=== PATIENT | female | born 1960 | race Two or more races ===

== ENCOUNTER 2017-04-18 06:05 | Emergency (ER) | payer MEDICAID ==
[2017-04-18] MEDS ORDERED: CIPROFLOXACIN500 M2 ORAL (09:16)
[2017-04-18] MEDS ORDERED: ZOFRAN ODT4 MG ORAL (09:16)
--- NOTE | 2017-04-18 15:09 | Emergency Room Report ---
History of Present Illness General Source: Patient Present Illness HPI Patient presents with complaints of general bodyaches several episodes of vomiting and diarrhea Patient also reports that she's developed a headache Denies any neck pain or photophobia Denies any dysuria frequency patient also has been having a mild cough Patient reports that she was seen at another facility no provided with any medication as the nausea continued patient presents to the ER she had some mild abdominal cramping denies any focal pain Patient History Past Medical History: see triage record Pertinent Family History: none Reviewed Nursing Documentation: PMH: Agreed, PSxH: Agreed Review of Systems All Other Systems: negative except mentioned in HPI Physical Exam Sp02 EP Interpretation: reviewed, normal - 99% on room air which is normal pulse ox General Appearance: well appearing, no apparent distress Head: normocephalic, atraumatic Eyes: bilateral eye PERRL, bilateral eye EOMI ENT: hearing grossly normal, normal pharynx, TMs + canals normal, uvula midline Neck: full range of motion, supple, no meningismus, no bony tend Respiratory: lungs clear, normal breath sounds, no rhonchi, no respiratory distress, no retraction, no accessory muscle use Cardiovascular #1: normal peripheral pulses, regular rate, rhythm, no edema, no gallop, no JVD, no murmur Gastrointestinal: normal bowel sounds, non tender, soft, no mass, no organomegaly, non-distended, no guarding, no hernia, no pulsatile mass, no rebound Genitourinary: no CVA tenderness Musculoskeletal: normal inspection Neurologic: oriented x3, responsive, keno attendant III-XII nml as tested, motor strength/ tone normal, sensory intact Psychiatric: mood/affect normal Skin: normal color, no rash, warm/dry, palpation normal Lymphatic: normal inspection, no adenopathy Medical Decision Making Diagnostic Impression: Primary Impression: vomiting diarrhea ER Course With the history exam and presentation, multiple differentials considered, including but not limited to appendicitis, gastritis, cholecystitis, diverticulitis patient did have IV established along with hydration and antiemetics Blood work is at baseline levels Chest x-ray was also done which was normal Please note that this workup was performed during a power outage therefore a there is no leak between the laboratory test also no leak between the vital signs Patient did have reevaluation and feels significantly improved and is able to be discharged home in stable condition CBC normal Chemistry normal Chest X-Ray Diagnostic Results Chest X-Ray Diagnostic Results : Chest X-Ray Ordered: Yes # of Views/Limited/Complete: 1 View Indication: Chest Pain EP Interpretation: Yes Interpretation: no consolidation, no effusion, no pneumothorax Impression: No acute disease Electronically Signed by: Paige Alegria DO Status: improved Disposition: HOME, SELF-CARE Condition: Improved Scripts Ondansetron Odt* (ZOFRAN ODT*) 4 Mg Tab.rapdis 4 MG ORAL Q6H Y for Nausea & Vomiting, #10 TAB 0 Refills Prov: PAIGE ALEGRIA D.O. 04/18/17 Ciprofloxacin Hcl* (CIPROFLOXACIN HCL*) 500 Mg Tablet 500 MG ORAL Q12H, #14 TAB 0 Refills Prov: PAIGE ALEGRIA D.O. 04/18/17 Referrals: NOT CHOSEN IPA/,REFERRING (PCP) Patient Instructions: Nausea and Vomiting, Adult, [id number], Diarrhea, Adult , [id number] Additional Instructions: Patient is provided with the discharge instructions notified to follow up with primary doctor in the next 2-3 days otherwise return to the er with any worsening symptoms. Please note that this report is being documented using [employer] technology. This can lead to erroneous entry secondary to incorrect interpretation by the dictating instrument. PAIGE ALEGRIA D.O. Apr 18, 2017 15:09
== END 2017-04-18 10:13 | disposition home or self-care (01) ==
LOC: EMR 07:30
DX: R11.10 Vomiting, unspecified (principal); R19.7 Diarrhea, unspecified
CPT/HCPCS: 99284; J2405

== ENCOUNTER 2017-04-22 22:00 | Emergency (ER) | payer MEDICAID ==
[~2017-04-22] VITALS: Ht 162.6 cm; Wt 52.2 kg
[~2017-04-22 22:00] MED LIST: CIPROFLOXACIN500 M2 ORAL; ZOFRAN ODT4 MG ORAL
[2017-04-22 22:25] VITALS: BP 128/82
[2017-04-22] MEDS ORDERED: Ketorolac 30mg Inj IV ONE (23:15)
[2017-04-22 23:46] LABS: APPEARANCE,URINE CLEAR; BILIRUBIN, URINE NEGATIVE (NEGATIVE); GLUCOSE, URINE (UA) NEGATIVE (NEGATIVE); KETONES,URINE NEGATIVE (NEGATIVE); LEUKOCYTE ESTERASE ,URINE NEGATIVE (NEGATIVE); NITRITE,URINE NEGATIVE (NEGATIVE); PH,URINE 5 (4.5-8.0); PROTEIN,URINE NEGATIVE (NEGATIVE); UROBILINOGEN,URINE NORMAL MG/DL (0.0-1.0)
[2017-04-22 23:47] LABS: BASOPHILS % (AUTO) 0.5 % (0.0-2.0); EOSINOPHILS % (AUTO) 1.1 % (0.0-3.0); HEMATOCRIT 40.7 % (37.0-47.0); HEMOGLOBIN 13.8 G/DL (12.0-16.0); LYMPHOCYTES % (AUTO) 12.1 % (20.0-45.0); MEAN CORPUSCULAR VOLUME 99 FL (80-99); MONOCYTES % (AUTO) 4.7 % (1.0-10.0); NEUTROPHILS % (AUTO) 81.7 % (45.0-75.0); PLATELET COUNT 239 K/UL (150-450); RED BLOOD COUNT 4.11 M/UL (4.20-5.40); RED CELL DISTRIBUTION WIDTH 11.7 % (11.6-14.8); WHITE BLOOD COUNT 7.1 K/UL (4.8-10.8)
[2017-04-22 23:49] LABS: COLOR,URINE YELLOW
[2017-04-22 23:57] LABS: ANION GAP 6 mmol/L (5-15); BLOOD UREA NITROGEN 26 mg/dL (7-18); CALCIUM 8.9 MG/DL (8.5-10.1); CARBON DIOXIDE 28 MMOL/L (21-32); CHLORIDE 103 MMOL/L (98-107); CREATININE 0.6 MG/DL (0.55-1.30); POTASSIUM 3.7 MMOL/L (3.5-5.1); SODIUM 137 MMOL/L (136-145)
[2017-04-23 00:05] LABS: ALANINE AMINOTRANSFERASE 232 U/L (12-78); ALBUMIN 3.6 G/DL (3.4-5.0); ALBUMIN/GLOBULIN RATIO 1.1 (1.0-2.7); ALKALINE PHOSPHATASE 72 U/L (46-116); ASPARTATE AMINO TRANSFERASE 131 U/L (15-37); BILIRUBIN,TOTAL 0.4 MG/DL (0.2-1.0)
[2017-04-23 00:25] VITALS: BP 121/75
--- NOTE | 2017-04-23 02:00 | Emergency Room Report ---
History of Present Illness General Chief Complaint: General Complaint Source: Patient Present Illness HPI This is a 56-year-old female with history of gastritis. She presents with chief complaint of epigastric abdominal pain with vomiting. Also with iron of fever since April 12. Diarrhea initially but none now. Was seen a few days ago placed on antibiotics. She came back because antibiotics I agree with her stomach. She's been vomiting more. No other complaint. Allergies: Coded Allergies: No Known Allergies (Unverified , 04/22/17) Patient History Past Medical History: see triage record, old chart reviewed Past Surgical History: other Pertinent Family History: none Social History: Denies: smoking, alcohol use, drug use Last Menstrual Period: NA Now: No Immunizations: other Reviewed Nursing Documentation: PMH: Agreed, PSxH: Agreed Nursing Documentation-PMH Past Medical History: No Stated History Review of Systems Eye: Denies: eye pain, blurred vision ENT: Denies: ear pain, nose congestion, throat swelling Respiratory: Denies: cough, shortness of breath Cardiovascular: Denies: chest pain, palpitations Gastrointestinal: Reports: abdominal pain, nausea, vomiting, Denies: diarrhea Musculoskeletal: Denies: back pain, joint pain Skin: Denies: rash Neurological: Denies: headache, numbness Endocrine: Denies: increased thirst, increased urine Hematologic/Lymphatic: Denies: easy bruising All Other Systems: negative except mentioned in HPI Physical Exam Vital Signs Date Time Temp Pulse Resp B/P (MAP) Pulse Ox O2 Delivery O2 Flow Rate FiO2 04/22/17 22:22 98.2 88 18 128/82 98 Room Air vitals normal Sp02 EP Interpretation: reviewed, normal General Appearance: well appearing, no apparent distress, alert Head: normocephalic, atraumatic Eyes: bilateral eye PERRL, bilateral eye EOMI ENT: hearing grossly normal, normal pharynx Neck: full range of motion, supple, no meningismus Respiratory: chest non-tender, lungs clear, normal breath sounds Cardiovascular #1: regular rate, rhythm, no murmur Gastrointestinal: normal bowel sounds, non tender, no mass, no organomegaly, no bruit, non-distended Musculoskeletal: back normal, gait/station normal, normal range of motion Psychiatric: mood/affect normal Skin: warm/dry Medical Decision Making Diagnostic Impression: Primary Impression: Abdominal pain Qualified Codes: R10.13 - Epigastric pain Additional Impressions: Gastritis Qualified Codes: K29.00 - Acute gastritis without bleeding Transaminitis ER Course Patient with abdominal pain. CT scan showed possible gastritis. No evidence of obstruction. Otherwise negative. No evidence of acute abdomen. She tolerating by mouth here. We'll discharge home. Lab Results Impression labs with elevated liver enzyme CT/MRI/US Diagnostic Results CT/MRI/US Diagnostic Results : Imaging Test Ordered: CT abdomen and pelvis Impression read by radiologist. under distention versus gastritis No bowel obstruction Last Vital Signs Date Time Temp Pulse Resp B/P (MAP) Pulse Ox O2 Delivery O2 Flow Rate FiO2 04/22/17 22:25 98.2 88 18 128/82 98 Room Air Status: improved Disposition: HOME, SELF-CARE Condition: Stable Scripts Omeprazole Magnesium (PRILOSEC OTC) 20 Mg Tablet. 20 MG ORAL DAILY, #30 TAB Prov: SHAWANDA TINEO M.D. 04/23/17 Additional Instructions: Followup with your in 7 days. Return if symptom worsen. SHAWANDA TINEO M.D. Apr 23, 2017 02:00
[2017-04-23] MEDS ORDERED: PRILOSEC OTC20 MG ORAL (02:04)
[2017-04-23 02:20] VITALS: BP 118/69
--- NOTE | 2017-04-23 10:16 | Diagnostic Imaging Report ---
Indication: Abdominal pain Technique: CT of the abdomen and pelvis utilizing automated exposure control with intravenous contrast. Venous scanning performed. CT dose: Total DLP 493.77 mGycm; CTDI vol 9.87 mGy Comparison: None Findings: Linear scarring/atelectasis in the right middle lobe. Heart size is within normal limits. No pericardial effusion. Liver, gallbladder, spleen, pancreas and adrenal glands unremarkable. Kidneys enhance symmetrically. No urinary tract stone or hydronephrosis bilaterally. Bladder unremarkable in appearance. Left adnexal cystic structure measuring up to 2.7 cm. Uterus grossly unremarkable. No free intraperitoneal air. No evidence of bowel obstruction. Appendix is not definitively visualized however there is no focal inflammatory change in the right lower quadrant. No ascites. There is questionable thickening versus underdistention of the stomach. Moderate colonic stool noted. There is a small fat-containing umbilical hernia. Abdominal aorta normal in caliber. No bulky lymphadenopathy identified. No acute osseous abnormality seen. IMPRESSION: Underdistention versus wall thickening of the stomach. Correlate for gastritis. Moderate colonic stool. No bowel obstruction. 2.7 cm cystic left adnexal lesion. Consider further evaluation with pelvic ultrasound. This corresponds with the statrad preliminary report. The CT scanner at [facility] is accredited by the [employer] and the scans are performed using protocols designed to limit radiation exposure to as low as reasonably achievable to attain images of sufficient resolution adequate for diagnostic evaluation.
== END 2017-04-23 02:20 | disposition home or self-care (01) ==
LOC: EMR 22:43
DX: K29.70 Gastritis, unspecified, without bleeding (principal); R74.0 Nonspecific elevation of levels of transaminase and lactic acid dehydrogenase [LDH]
CPT/HCPCS: 36415; 74177; 80053; 81003; 83690; 85025; 96361; 96374; 96375; 99284; J1885; J2405; Q9967

== ENCOUNTER 2017-04-26 14:05 | Emergency (ER) | payer MEDICAID ==
[~2017-04-26] VITALS: Ht 162.6 cm; Wt 54.4 kg
[~2017-04-26 14:05] MED LIST changes: +PRILOSEC OTC20 MG ORAL
[2017-04-26 14:27] VITALS: BP 128/79
--- NOTE | 2017-04-26 14:56 | Emergency Room Report ---
History of Present Illness General Chief Complaint: Diarrhea Source: Patient Present Illness HPI Patient is a 56-year-old female presented after increased watery diarrhea and generalized weakness. Patient gradual onset of symptoms. Patient reports having this for several weeks after initial respiratory infection. She had no complaints of abdominal pain or bowel cramping. She reports having difficulty with the bouts of diarrhea immediately after eating. She denied any black or bloody stools Allergies: Coded Allergies: No Known Allergies (Unverified , 04/22/17) Patient History Past Medical History: see triage record Reviewed Nursing Documentation: PMH: Agreed, PSxH: Agreed Nursing Documentation-PMH Past Medical History: No Stated History Review of Systems All Other Systems: negative except mentioned in HPI Physical Exam Vital Signs Date Time Temp Pulse Resp B/P (MAP) Pulse Ox O2 Delivery O2 Flow Rate FiO2 04/26/17 14:17 98.8 80 18 130/78 98 Room Air Sp02 EP Interpretation: reviewed, normal General Appearance: normal inspection, well appearing, no apparent distress, alert, GCS 15 Head: atraumatic ENT: normal ENT inspection, hearing grossly normal, normal voice Neck: normal inspection, full range of motion, supple, no bony tend Respiratory: normal inspection, lungs clear, normal breath sounds, no respiratory distress, no retraction, no wheezing Cardiovascular #1: regular rate, rhythm, no edema Gastrointestinal: normal inspection, normal bowel sounds, non tender, soft, no guarding, no hernia Genitourinary: no CVA tenderness Musculoskeletal: normal inspection, back normal, normal range of motion Neurologic: normal inspection, alert, oriented x3, responsive, information technology auditor III-XII nml as tested, speech normal Psychiatric: normal inspection, judgement/insight normal, mood/affect normal Skin: normal inspection, normal color, no rash Medical Decision Making Diagnostic Impression: Primary Impression: Chronic diarrhea Additional Impression: Abnormal TSH ER Course Patient presented for abdominal pain. Differential diagnoses included ischemic bowel, appendicitis, perforated viscus, abdominal aortic aneurysm, inferior myocardial infarction, viral gastroenteritis. Because of complexity of patient' s case laboratory testing was ordered. Laboratory testing was notable for elevated TSH. Patient was noted to have symptoms consistent with possible hyperthyroidism. Patient is advised followup with her primary care physician for further endocrine workup. The patient will likely need repeat TSH as well as free T4. The patient is advised to follow up with primary care doctor in 1-2 days. Patient is advised to return if any worsening condition or if any changes in status that are concerning. This report is dictated with [employer] screw down software which may occasionally lead to discrepancies related to use of this software. Labs Test 04/26/17 14:39 04/26/17 15:20 Urine Color Yellow Urine Appearance Clear Urine pH 5 (4.5-8.0) Urine Specific [place] 1.015 (1.005-1.035) Urine Protein Negative (NEGATIVE) Urine Glucose (UA) Negative (NEGATIVE) Urine Ketones Negative (NEGATIVE) Urine Occult Blood Negative (NEGATIVE) Urine Nitrite Negative (NEGATIVE) Urine Bilirubin Negative (NEGATIVE) Urine Urobilinogen Normal MG/DL (0.0-1.0) Urine Leukocyte Esterase Negative (NEGATIVE) White Blood Count 5.7 K/UL (4.8-10.8) Red Blood Count 4.22 M/UL (4.20-5.40) Hemoglobin 14.5 G/DL (12.0-16.0) Hematocrit 41.6 % (37.0-47.0) Mean Corpuscular Volume 99 FL (80-99) Mean Corpuscular Hemoglobin 34.5 PG (27.0-31.0) Mean Corpuscular Hemoglobin Concent 34.9 G/DL (32.0-36.0) Red Cell Distribution Width 11.4 % (11.6-14.8) Platelet Count 255 K/UL (150-450) Mean Platelet Volume 6.9 FL (6.5-10.1) Neutrophils (%) (Auto) 67.9 % (45.0-75.0) Lymphocytes (%) (Auto) 24.9 % (20.0-45.0) Monocytes (%) (Auto) 4.9 % (1.0-10.0) Eosinophils (%) (Auto) 1.6 % (0.0-3.0) Basophils (%) (Auto) 0.8 % (0.0-2.0) Sodium Level 138 MMOL/L (136-145) Potassium Level 3.8 MMOL/L (3.5-5.1) Chloride Level 99 MMOL/L (98-107) Carbon Dioxide Level 31 MMOL/L (21-32) Anion Gap 8 mmol/L (5-15) Blood Urea Nitrogen 15 mg/dL (7-18) Creatinine 0.6 MG/DL (0.55-1.30) Estimat Glomerular Filtration Rate > 60 mL/min (>60) Glucose Level 96 MG/DL (74-106) Calcium Level 10.0 MG/DL (8.5-10.1) Total Bilirubin 0.9 MG/DL (0.2-1.0) Aspartate Amino Transf (AST/SGOT) 35 U/L (15-37) Alanine Aminotransferase (ALT/SGPT) 92 U/L (12-78) Alkaline Phosphatase 73 U/L (46-116) Total Protein 7.8 G/DL (6.4-8.2) Albumin 4.3 G/DL (3.4-5.0) Globulin 3.5 g/dL Albumin/Globulin Ratio 1.2 (1.0-2.7) Lipase 225 U/L (73-393) Thyroid Stimulating Hormone (TSH) 20.009 uiU/mL (0.358-3.740) Last Vital Signs Date Time Temp Pulse Resp B/P (MAP) Pulse Ox O2 Delivery O2 Flow Rate FiO2 04/26/17 14:27 98.8 82 17 128/79 99 Room Air Status: improved Disposition: HOME, SELF-CARE Condition: Stable Scripts Loperamide HCl (Loperamide) 2 Mg Capsule 2 MG ORAL Q12HR for Diarrhea, #20 CAP 0 Refills Prov: Pollo Lemons 04/26/17 Pollo Lemons Apr 26, 2017 14:56
[2017-04-26] MEDS ORDERED: Thiamine HCl 100mg/ml 2 ml Inj ONE (14:57)
[2017-04-26] MEDS ORDERED: Thiamine HCl 100 MG in D5W 55 ML IVPB SCH (15:00)
[2017-04-26] MEDS ORDERED: Mylanta II UD 30ml ORAL ONE (15:00)
[2017-04-26] MEDS ORDERED: Dicyclomine HCl 10mg/5ml oral soln ORAL ONE (15:00)
[2017-04-26] MEDS ORDERED: Lidocaine 2% Visc 15ml soln ORAL ONE (15:00)
[2017-04-26 15:20] LABS: APPEARANCE,URINE CLEAR; BILIRUBIN, URINE NEGATIVE (NEGATIVE); COLOR,URINE YELLOW; GLUCOSE, URINE (UA) NEGATIVE (NEGATIVE); KETONES,URINE NEGATIVE (NEGATIVE); LEUKOCYTE ESTERASE ,URINE NEGATIVE (NEGATIVE); NITRITE,URINE NEGATIVE (NEGATIVE); PH,URINE 5 (4.5-8.0); PROTEIN,URINE NEGATIVE (NEGATIVE); UROBILINOGEN,URINE NORMAL MG/DL (0.0-1.0)
[2017-04-26 15:38] LABS: BASOPHILS % (AUTO) 0.8 % (0.0-2.0); EOSINOPHILS % (AUTO) 1.6 % (0.0-3.0); HEMATOCRIT 41.6 % (37.0-47.0); HEMOGLOBIN 14.5 G/DL (12.0-16.0); LYMPHOCYTES % (AUTO) 24.9 % (20.0-45.0); MEAN CORPUSCULAR VOLUME 99 FL (80-99); MONOCYTES % (AUTO) 4.9 % (1.0-10.0); NEUTROPHILS % (AUTO) 67.9 % (45.0-75.0); PLATELET COUNT 255 K/UL (150-450); RED BLOOD COUNT 4.22 M/UL (4.20-5.40); RED CELL DISTRIBUTION WIDTH 11.4 % (11.6-14.8); WHITE BLOOD COUNT 5.7 K/UL (4.8-10.8)
[2017-04-26 15:41] VITALS: BP 119/72
[2017-04-26 16:04] LABS: ANION GAP 8 mmol/L (5-15); BLOOD UREA NITROGEN 15 mg/dL (7-18); CARBON DIOXIDE 31 MMOL/L (21-32); CHLORIDE 99 MMOL/L (98-107); CREATININE 0.6 MG/DL (0.55-1.30); POTASSIUM 3.8 MMOL/L (3.5-5.1); SODIUM 138 MMOL/L (136-145)
[2017-04-26 16:20] LABS: ALANINE AMINOTRANSFERASE 92 U/L (12-78); ALBUMIN 4.3 G/DL (3.4-5.0); ALBUMIN/GLOBULIN RATIO 1.2 (1.0-2.7); ALKALINE PHOSPHATASE 73 U/L (46-116); ASPARTATE AMINO TRANSFERASE 35 U/L (15-37); BILIRUBIN,TOTAL 0.9 MG/DL (0.2-1.0)
[2017-04-26] MEDS ORDERED: Sodium Chloride 500ML 500 ML IV ONE (16:30)
[2017-04-26] MEDS ORDERED: IMODIUM2 MG ORAL (16:51)
[2017-04-26 17:04] VITALS: BP 156/125
== END 2017-04-26 17:07 | disposition home or self-care (01) ==
LOC: EMR 14:25
DX: K52.9 Noninfective gastroenteritis and colitis, unspecified (principal); R94.6 Abnormal results of thyroid function studies
CPT/HCPCS: 36415; 80053; 81003; 83690; 84443; 85025; 96361; 96365; 96375; 99284; J2405; J7040

== ENCOUNTER → 2017-04-27 | Emergency (ER) | payer MEDICAID ==
[~2017-04-27] VITALS: Ht 162.6 cm; Wt 54.4 kg
[~2017-04-27] MED LIST changes: +AMBIEN5 MG ORAL; +DiphenhydrAMINE 25mg/10ml Elixir ORAL ONE; +IMODIUM2 MG ORAL
[2017-04-27 14:14] VITALS: BP 127/81
--- NOTE | 2017-04-27 14:39 | Emergency Room Report ---
History of Present Illness General Chief Complaint: Headache Source: Patient Present Illness HPI 56 yo female presents to ER complaining of NARANJO since yesterday and continued flu- like symptoms. Patient reports NARANJO is over front of head. Patient reports being seen in ER for diarrhea symptoms and generalized weakness several times recently; states she has not filled prescription or followed up with primary care since last visit. Reports symptoms have improved since yesterday. Patient also reports flu-like symptoms. Reports taking B12 injection shots at home so that she could "come into the ER today". Denies use of other medications. Denies fever, chest pain, SOB, dysuria, hematuria, abdominal pain Allergies: Coded Allergies: No Known Allergies (Unverified , 04/22/17) Patient History Past Medical History: see triage record Reviewed Nursing Documentation: PMH: Agreed, PSxH: Agreed Nursing Documentation-PMH Past Medical History: No Stated History Review of Systems All Other Systems: negative except mentioned in HPI Physical Exam Vital Signs Date Time Temp Pulse Resp B/P (MAP) Pulse Ox O2 Delivery O2 Flow Rate FiO2 04/27/17 14:04 98.9 73 16 127/81 97 Room Air 99.0 Sp02 EP Interpretation: reviewed, normal General Appearance: no apparent distress, alert, GCS 15, non-toxic Head: normocephalic, atraumatic, other - no sinus tenderness Eyes: bilateral eye normal inspection, bilateral eye PERRL ENT: hearing grossly normal, normal pharynx, no angioedema, normal voice Neck: full range of motion, supple/symm/no masses Respiratory: chest non-tender, lungs clear, normal breath sounds, speaking full sentences Cardiovascular #1: regular rate, rhythm, no edema Gastrointestinal: normal bowel sounds, non tender, soft, non-distended, no guarding, no rebound Genitourinary: no CVA tenderness Musculoskeletal: back normal, digits/nails normal, gait/station normal, normal range of motion, non-tender Neurologic: alert, oriented x3, responsive, specialty person III-XII nml as tested, motor strength/tone normal, sensory intact, speech normal Skin: no rash Lymphatic: no adenopathy Medical Decision Making PA Attestation Dr. Lemons is my supervising Physician whom patient management has been discussed with. Diagnostic Impression: Primary Impression: Headache ER Course Patient presents to ER complaining of NARANJO and flu-like symptoms. DDx considered include but are not limited to viral URI, influenza, tension NARANJO, migraine NARANJO, cluster NARANJO, UTI. Vital signs are WNL, patient is afebrile. I did not order further labs and imaging at this time, patient is stable, negative physical, with no worsening or new onset of symptoms since yesterday visit to ER. I ordered medication for migraine and UTI. ER Course Patient states symptoms have improved but not completely disappeared,wants to know "why" the symptoms don't all go away "immediately". Patient reports she has still not called or contacted primary care provider per instructions from previous ER visits. Informed patient that she needs to call and contact her insurance provider to receive information on physician to schedule an appointment. Patient begins dialing insurance while in ER. Patient provided with Metoclopramide for alleviation of NARANJO symptoms; Benadryl provided to prevent potential side effects of Metoclopramide. 0325PM Patient reports feeling better since administration of medication. Patient resting comfortably in no acute distress, nontoxic appearing. Patient states she scheduled an appointment with physician for later today and wants to leave ER now to get to appointment on time. Informed patient lab results and workup have not been completed; if she wants to leave will need to sign AMA form. 0330PM Patient wants to leave AMA; patient states she scheduled an appointment while in the ER with primary care; states she wants to leave now to go to that appointment. Instructed patient to fill prescription from previous ER visit and discuss thyroid labs with primary care provider. Patient departed AMA. Patient instructed to follow-up with primary care provider in the next 3 days and discuss further referral with PCP to outboard technician. ER precautions given. Patient instructed to return to ER immediately for any new or worsening of symptoms including but not limited to fever, neck stiffness , vision changes, and neurological symptoms. Labs Test 04/27/17 15:07 Urine Color Pale yellow Urine Appearance Clear Urine pH 5 (4.5-8.0) Urine Specific [place] 1.005 (1.005-1.035) Urine Protein Negative (NEGATIVE) Urine Glucose (UA) Negative (NEGATIVE) Urine Ketones Negative (NEGATIVE) Urine Occult Blood Negative (NEGATIVE) Urine Nitrite Negative (NEGATIVE) Urine Bilirubin Negative (NEGATIVE) Urine Urobilinogen Normal MG/DL (0.0-1.0) Urine Leukocyte Esterase Negative (NEGATIVE) Last Vital Signs Date Time Temp Pulse Resp B/P (MAP) Pulse Ox O2 Delivery O2 Flow Rate FiO2 04/27/17 14:04 98.9 73 16 127/81 97 Room Air 99.0 Disposition: AGAINST MEDICAL ADVICE Condition: Stable Patient Instructions: General Headache Without Cause Rios Beckman Apr 27, 2017 14:39
[2017-04-27 15:33] LABS: APPEARANCE,URINE CLEAR; BILIRUBIN, URINE NEGATIVE (NEGATIVE); COLOR,URINE PALE YELLOW; GLUCOSE, URINE (UA) NEGATIVE (NEGATIVE); KETONES,URINE NEGATIVE (NEGATIVE); LEUKOCYTE ESTERASE ,URINE NEGATIVE (NEGATIVE); NITRITE,URINE NEGATIVE (NEGATIVE); PH,URINE 5 (4.5-8.0); PROTEIN,URINE NEGATIVE (NEGATIVE); UROBILINOGEN,URINE NORMAL MG/DL (0.0-1.0)
== END | disposition left against medical advice (07) ==
LOC: EMR 14:39
DX: R51 Headache (principal)
CPT/HCPCS: 81003; 99283

== ENCOUNTER 2017-05-24 12:29 | Inpatient (IN) | payer MEDICAID ==
[~2017-05-24] VITALS: Ht 162.6 cm; Wt 52.2 kg
[~2017-05-24 12:29] MED LIST changes: -AMBIEN5 MG ORAL; -DiphenhydrAMINE 25mg/10ml Elixir ORAL ONE
[2017-05-24 13:38] LABS: BASOPHILS % (AUTO) 0.6 % (0.0-2.0); EOSINOPHILS % (AUTO) 1.1 % (0.0-3.0); HEMATOCRIT 42.3 % (37.0-47.0); HEMOGLOBIN 14.6 G/DL (12.0-16.0); LYMPHOCYTES % (AUTO) 12.1 % (20.0-45.0); MEAN CORPUSCULAR VOLUME 97 FL (80-99); MONOCYTES % (AUTO) 4.9 % (1.0-10.0); NEUTROPHILS % (AUTO) 81.2 % (45.0-75.0); PLATELET COUNT 280 K/UL (150-450); RED BLOOD COUNT 4.36 M/UL (4.20-5.40); RED CELL DISTRIBUTION WIDTH 11.1 % (11.6-14.8); WHITE BLOOD COUNT 5.9 K/UL (4.8-10.8)
[2017-05-24 13:53] LABS: INR 0.9 (0.9-1.1)
[2017-05-24 13:54] LABS: ANION GAP 11 mmol/L (5-15); BLOOD UREA NITROGEN 15 mg/dL (7-18); CALCIUM 9.8 MG/DL (8.5-10.1); CARBON DIOXIDE 26 MMOL/L (21-32); CHLORIDE 100 MMOL/L (98-107); CREATININE 0.6 MG/DL (0.55-1.30); POTASSIUM 3.2 MMOL/L (3.5-5.1); SODIUM 137 MMOL/L (136-145)
[2017-05-24 14:04] LABS: ALANINE AMINOTRANSFERASE 66 U/L (12-78); ALBUMIN 4.2 G/DL (3.4-5.0); ALBUMIN/GLOBULIN RATIO 1.2 (1.0-2.7); ALKALINE PHOSPHATASE 99 U/L (46-116); ASPARTATE AMINO TRANSFERASE 44 U/L (15-37); BILIRUBIN,TOTAL 0.6 MG/DL (0.2-1.0)
[2017-05-24 14:11] VITALS: BP 124/65
[2017-05-24 14:40] LABS: APPEARANCE,URINE CLEAR; BILIRUBIN, URINE NEGATIVE (NEGATIVE); COLOR,URINE PALE YELLOW; GLUCOSE, URINE (UA) NEGATIVE (NEGATIVE); KETONES,URINE NEGATIVE (NEGATIVE); LEUKOCYTE ESTERASE ,URINE NEGATIVE (NEGATIVE); NITRITE,URINE NEGATIVE (NEGATIVE); PH,URINE 5 (4.5-8.0); PROTEIN,URINE NEGATIVE (NEGATIVE); UROBILINOGEN,URINE NORMAL MG/DL (0.0-1.0)
[2017-05-24 14:56] VITALS: BP 107/59
--- NOTE | 2017-05-24 15:16 | Emergency Room Report ---
History of Present Illness General Chief Complaint: Generalized Weakness Source: Patient Present Illness HPI The patient presents with severe weakness and nausea. This has been present for several weeks to months. She been seen here multiple times. She also has diarrhea. She took 2 Imodium and it hasn't helped yet. Stools have been watery. In the recent past she's taken ciprofloxacin (04/18/17). She denies pain but states that the nausea is overwhelming. She has no medication for the nausea at this time. Weakness is generalized. No fevers. No chest pain, palpitations, polies, dysuria, joint pain, depression, anxiety. She was seen here recently and had an elevated TSH (04/26). Does take medication for this but is uncertain what it is. She signed out AGAINST MEDICAL ADVICE at that time. Post menopausal. CT was done 04/23 - IMPRESSION: Underdistention versus wall thickening of the stomach. Correlate for gastritis. Moderate colonic stool. No bowel obstruction. 2.7 cm cystic left adnexal lesion. Consider further evaluation with pelvic ultrasound. Allergies: Coded Allergies: No Known Allergies (Unverified , 04/22/17) Patient History Past Medical History: see triage record, old chart reviewed Social History: Denies: smoking, alcohol use, drug use Social History Narrative from home Reviewed Nursing Documentation: PMH: Agreed, PSxH: Agreed Nursing Documentation-PMH Hx Gastrointestinal Problems: Yes - GASTRITIS Review of Systems All Other Systems: negative except mentioned in HPI Physical Exam Vital Signs Date Time Temp Pulse Resp B/P (MAP) Pulse Ox O2 Delivery O2 Flow Rate FiO2 05/24/17 12:41 99.1 96 18 134/80 99 Room Air 99.1 Sp02 EP Interpretation: reviewed, normal General Appearance: no apparent distress, GCS 15, non-toxic, other - weak appearing Head: normocephalic Eyes: bilateral eye normal inspection, bilateral eye PERRL ENT: dry mucus membranes Neck: supple Respiratory: lungs clear, normal breath sounds Cardiovascular #1: regular rate, rhythm, no murmur, edema - trace Cardiovascular #2: 2+ radial (R) Gastrointestinal: normal inspection, normal bowel sounds, non tender, no mass, non-distended Musculoskeletal: back normal, normal range of motion, no calf tenderness Neurologic: alert, oriented x3, motor strength/tone normal, sensory intact, cerebellar normal, speech normal Psychiatric: mood/affect normal Reflexes: 2+ knee (R) - slight delay, 2+ knee (L) - slight delay Skin: warm/dry, other - sallo Medical Decision Making Diagnostic Impression: Primary Impression: Persistent vomiting Additional Impressions: Hypokalemia Diarrhea Qualified Codes: R19.7 - Diarrhea, unspecified Hypothyroid Qualified Codes: E03.9 - Hypothyroidism, unspecified ER Course Patient presents with weakness, vomiting and nausea with h/o elevated TSH. DDx : colitis, hypothyroidism, GItis, electrolyte imbalance, gastritis amongst others. As abdomen is soft, no imaging indicated. Treatment with IV hydration and zofran. Stool will be tested for C difficile. TSH reviewed from 04/26 = 20. WBC normal, H/H is slightly high suggesting volume depletion. K is low, renal function normal. ALT elevated (had been higher in past). Patient somewhat improved with IV hydration and zofran. Able to ambulate in ED. Patient unable to take potassium PO. Nausea. No stool produced. Cortisone and potassium given IV. Admit med Dr. Sal notified. Laboratory Tests Test 05/24/17 13:19 05/24/17 14:07 White Blood Count 5.9 K/UL (4.8-10.8) Red Blood Count 4.36 M/UL (4.20-5.40) Hemoglobin 14.6 G/DL (12.0-16.0) Hematocrit 42.3 % (37.0-47.0) Mean Corpuscular Volume 97 FL (80-99) Mean Corpuscular Hemoglobin 33.4 PG (27.0-31.0) H Mean Corpuscular Hemoglobin Concent 34.5 G/DL (32.0-36.0) Red Cell Distribution Width 11.1 % (11.6-14.8) L Platelet Count 280 K/UL (150-450) Mean Platelet Volume 6.8 FL (6.5-10.1) Neutrophils (%) (Auto) 81.2 % (45.0-75.0) H Lymphocytes (%) (Auto) 12.1 % (20.0-45.0) L Monocytes (%) (Auto) 4.9 % (1.0-10.0) Eosinophils (%) (Auto) 1.1 % (0.0-3.0) Basophils (%) (Auto) 0.6 % (0.0-2.0) Prothrombin Time 9.9 SEC (9.30-11.50) Prothrombin Time INR 0.9 (0.9-1.1) PTT 26 SEC (23-33) Sodium Level 137 MMOL/L (136-145) Potassium Level 3.2 MMOL/L (3.5-5.1) L Chloride Level 100 MMOL/L (98-107) Carbon Dioxide Level 26 MMOL/L (21-32) Anion Gap 11 mmol/L (5-15) Blood Urea Nitrogen 15 mg/dL (7-18) Creatinine 0.6 MG/DL (0.55-1.30) Estimate Glomerular Filtration Rate > 60 mL/min (>60) Glucose Level 116 MG/DL (74-106) H Calcium Level 9.8 MG/DL (8.5-10.1) Total Bilirubin 0.6 MG/DL (0.2-1.0) Aspartate Amino Transferase (AST) 44 U/L (15-37) H Alanine Aminotransferase (ALT) 66 U/L (12-78) Alkaline Phosphatase 99 U/L (46-116) Troponin I 0.000 ng/mL (0.000-0.056) Total Protein 7.8 G/DL (6.4-8.2) Albumin 4.2 G/DL (3.4-5.0) Globulin 3.6 g/dL Albumin/Globulin Ratio 1.2 (1.0-2.7) Lipase 130 U/L (73-393) Urine Color Pale yellow Urine Appearance Clear Urine pH 5 (4.5-8.0) Urine Specific [place] 1.010 (1.005-1.035) Urine Protein Negative (NEGATIVE) Urine Glucose (UA) Negative (NEGATIVE) Urine Ketones Negative (NEGATIVE) Urine Occult Blood 5+ (NEGATIVE) H Urine Nitrite Negative (NEGATIVE) Urine Bilirubin Negative (NEGATIVE) Urine Urobilinogen Normal MG/DL (0.0-1.0) Urine Leukocyte Esterase Negative (NEGATIVE) Urine RBC 15-20 /HPF (0 - 2) H Urine WBC 0-2 /HPF (0 - 2) Urine Squamous Epithelial Cells Occasional /LPF Urine Bacteria Occasional /HPF (NONE) EKG Diagnostic Results Rate: normal Rhythm: NSR ST Segments: no acute changes Rhythm Strip Diag. Results EP Interpretation: yes Rhythm: NSR, no PVC's, no ectopy Last Vital Signs Date Time Temp Pulse Resp B/P (MAP) Pulse Ox O2 Delivery O2 Flow Rate FiO2 05/24/17 16:33 98.0 75 18 114/63 99 Room Air 98.0 Status: improved Disposition: ADMITTED INPATIENT Condition: Serious Referrals: NON PHYSICIAN (PCP) Sheldon Amador M.D. May 24, 2017 15:16
[2017-05-24] MEDS ORDERED: Hydrocortisone 100mg Inj IV ONE (15:30)
[2017-05-24] MEDS ORDERED: Potassium Chloride 10 MEQ in NS 110 ML IVPB SCH (15:45)
[2017-05-24 16:33] VITALS: BP 114/63
[2017-05-24] MEDS ORDERED: Morphine Sulfate 2mg/ml Inj IVP PRN (16:45)
[2017-05-24] MEDS ORDERED: Acetaminophen 650 MG SUPP RECTAL PRN ×2 (16:45)
[2017-05-24 17:32] VITALS: BP 110/57
[2017-05-24 18:10] VITALS: BP 111/71
[2017-05-24] MEDS: Pantoprazole Inj IV SCH (18:30)
[2017-05-24] MEDS: D5 1/2NS w/KCl 20mEq 1,000 ML IV SCH (18:56)
[2017-05-24] MEDS: Zolpidem 5mg tab ORAL PRN (20:02)
[2017-05-24 20:10] VITALS: BP 95/55
[2017-05-25 04:00] VITALS: BP 115/74
[2017-05-25] MEDS: D5 1/2NS w/KCl 20mEq 1,000 ML IV SCH ×2 (04:41→15:04)
[2017-05-25 07:54] LABS: BASOPHILS % (AUTO) 0.7 % (0.0-2.0); EOSINOPHILS % (AUTO) 2.9 % (0.0-3.0); HEMATOCRIT 34.1 % (37.0-47.0); HEMOGLOBIN 11.8 G/DL (12.0-16.0); LYMPHOCYTES % (AUTO) 28.9 % (20.0-45.0); MEAN CORPUSCULAR VOLUME 97 FL (80-99); MONOCYTES % (AUTO) 6.4 % (1.0-10.0); PLATELET COUNT 206 K/UL (150-450); RED BLOOD COUNT 3.52 M/UL (4.20-5.40)
[2017-05-25 08:00] VITALS: BP 116/72
[2017-05-25] MEDS: Pantoprazole Inj IV SCH (08:06)
[2017-05-25 08:22] LABS: ALANINE AMINOTRANSFERASE 46 U/L (12-78); ALBUMIN 3.1 G/DL (3.4-5.0); ALBUMIN/GLOBULIN RATIO 1.1 (1.0-2.7); ALKALINE PHOSPHATASE 70 U/L (46-116); ANION GAP 5 mmol/L (5-15); ASPARTATE AMINO TRANSFERASE 28 U/L (15-37); BILIRUBIN,TOTAL 0.5 MG/DL (0.2-1.0); BLOOD UREA NITROGEN 7 mg/dL (7-18); CARBON DIOXIDE 28 MMOL/L (21-32); CHLORIDE 108 MMOL/L (98-107); CREATININE 0.5 MG/DL (0.55-1.30); POTASSIUM 3.9 MMOL/L (3.5-5.1); SODIUM 141 MMOL/L (136-145)
[2017-05-25 11:53] VITALS: BP 132/86
--- NOTE | 2017-05-25 13:19 | GI Initial Consult Note ---
History of Present Illness General Date patient seen: May 25, 2017 Time patient seen: 13:11 Reason for Hospitalization: Generalized Weakness Referring physician: AKIRA RODRIGUEZ Reason for Consultation: VOMITING Present Illness HPI The patient presents with severe weakness and nausea. This has been present for several weeks to months. She been seen here multiple times. She also has diarrhea. She took 2 Imodium and it hasn't helped yet. Stools have been watery. In the recent past she's taken ciprofloxacin (04/18/17). She denies pain but states that the nausea is overwhelming. She has no medication for the nausea at this time. Weakness is generalized. No fevers. No chest pain, palpitations, polies, dysuria, joint pain, depression, anxiety. She was seen here recently and had an elevated TSH (04/26). Does take medication for this but is uncertain what it is. She signed out AGAINST MEDICAL ADVICE at that time. Post menopausal. GI consulted for N/V/D. Pt seen, awake A&Ox4 NAD states she feels alot better. Had soft BM this morning after taking Imodium. Complaint of watery diarrhea x 2 months. No melena or hematochezia. Denied any recent travels, but stated his dad had similar symptoms and diagnosed with amoebas. States she has a history of gastritis and has been taking protonix. Last EGD/colonoscopy x 3 years with unremarkable results. CT was done 04/23 - IMPRESSION: Underdistention versus wall thickening of the stomach. Correlate for gastritis. Moderate colonic stool. No bowel obstruction. 2.7 cm cystic left adnexal lesion. Consider further evaluation with pelvic ultrasound. Home Meds Active Scripts Loperamide HCl (Loperamide) 2 Mg Capsule, 2 MG ORAL Q12HR for Diarrhea, #20 CAP 0 Refills Prov:Pollo Lemons 04/26/17 Omeprazole Magnesium (PRILOSEC OTC) 20 Mg Tablet.dr 20 MG ORAL DAILY, #30 TAB Prov:SHAWANDA TINEO M.D. 04/23/17 Ondansetron Odt* (ZOFRAN ODT*) 4 Mg Tab.rapdis, 4 MG ORAL Q6H Y for Nausea & Vomiting, #10 TAB 0 Refills Prov:HUBER ALEGRIA D.O. 04/18/17 Ciprofloxacin Hcl* (CIPROFLOXACIN HCL*) 500 Mg Tablet, 500 MG ORAL Q12H, #14 TAB 0 Refills Prov:HUBER ALEGRIA D.O. 04/18/17 Med list reviewed/reconciled: Yes Allergies: Coded Allergies: No Known Allergies (Unverified , 04/22/17) Patient History History Provided By: Patient, Medical Record PMH Narrative Past Medical History: see triage record, old chart reviewed Social History: Denies: smoking, alcohol use, drug use Social History Narrative from home Reviewed Nursing Documentation: PMH: Agreed, PSxH: Agreed Nursing Documentation-PMH Hx Gastrointestinal Problems: Yes - GASTRITIS Social History: Denies: smoking, alcohol use, drug use, other Review of Systems All Other Systems: negative except mentioned in HPI Physical Exam Vital Signs Date Time Temp Pulse Resp B/P (MAP) Pulse Ox O2 Delivery O2 Flow Rate FiO2 05/24/17 12:41 99.1 96 18 134/80 99 Room Air 99.1 Sp02 EP Interpretation: reviewed, normal Labs Laboratory Tests Test 05/24/17 13:19 05/24/17 14:07 05/25/17 07:10 05/25/17 09:00 White Blood Count 5.9 K/UL (4.8-10.8) 6.0 K/UL (4.8-10.8) Red Blood Count 4.36 M/UL (4.20-5.40) 3.52 M/UL (4.20-5.40) L Hemoglobin 14.6 G/DL (12.0-16.0) 11.8 G/DL (12.0-16.0) L Hematocrit 42.3 % (37.0-47.0) 34.1 % (37.0-47.0) L Mean Corpuscular Volume 97 FL (80-99) 97 FL (80-99) Mean Corpuscular Hemoglobin 33.4 PG (27.0-31.0) H 33.6 PG (27.0-31.0) H Mean Corpuscular Hemoglobin Concent 34.5 G/DL (32.0-36.0) 34.7 G/DL (32.0-36.0) Red Cell Distribution Width 11.1 % (11.6-14.8) L 11.0 % (11.6-14.8) L Platelet Count 280 K/UL (150-450) 206 K/UL (150-450) Mean Platelet Volume 6.8 FL (6.5-10.1) 6.6 FL (6.5-10.1) Neutrophils (%) (Auto) 81.2 % (45.0-75.0) H 61.0 % (45.0-75.0) Lymphocytes (%) (Auto) 12.1 % (20.0-45.0) L 28.9 % (20.0-45.0) Monocytes (%) (Auto) 4.9 % (1.0-10.0) 6.4 % (1.0-10.0) Eosinophils (%) (Auto) 1.1 % (0.0-3.0) 2.9 % (0.0-3.0) Basophils (%) (Auto) 0.6 % (0.0-2.0) 0.7 % (0.0-2.0) Prothrombin Time 9.9 SEC (9.30-11.50) Prothromb Time International Ratio 0.9 (0.9-1.1) Activated Partial Thromboplast Time 26 SEC (23-33) Sodium Level 137 MMOL/L (136-145) 141 MMOL/L (136-145) Potassium Level 3.2 MMOL/L (3.5-5.1) L 3.9 MMOL/L (3.5-5.1) Chloride Level 100 MMOL/L (98-107) 108 MMOL/L (98-107) H Carbon Dioxide Level 26 MMOL/L (21-32) 28 MMOL/L (21-32) Anion Gap 11 mmol/L (5-15) 5 mmol/L (5-15) Blood Urea Nitrogen 15 mg/dL (7-18) 7 mg/dL (7-18) Creatinine 0.6 MG/DL (0.55-1.30) 0.5 MG/DL (0.55-1.30) L Estimat Glomerular Filtration Rate > 60 mL/min (>60) > 60 mL/min (>60) Glucose Level 116 MG/DL (74-106) H 114 MG/DL (74-106) H Calcium Level 9.8 MG/DL (8.5-10.1) 9.0 MG/DL (8.5-10.1) Total Bilirubin 0.6 MG/DL (0.2-1.0) 0.5 MG/DL (0.2-1.0) Aspartate Amino Transf (AST/SGOT) 44 U/L (15-37) H 28 U/L (15-37) Alanine Aminotransferase (ALT/SGPT) 66 U/L (12-78) 46 U/L (12-78) Alkaline Phosphatase 99 U/L (46-116) 70 U/L (46-116) Troponin I 0.000 ng/mL (0.000-0.056) Total Protein 7.8 G/DL (6.4-8.2) 5.9 G/DL (6.4-8.2) L Albumin 4.2 G/DL (3.4-5.0) 3.1 G/DL (3.4-5.0) L Globulin 3.6 g/dL 2.8 g/dL Albumin/Globulin Ratio 1.2 (1.0-2.7) 1.1 (1.0-2.7) Lipase 130 U/L (73-393) Urine Color Pale yellow Urine Appearance Clear Urine pH 5 (4.5-8.0) Urine Specific [place] 1.010 (1.005-1.035) Urine Protein Negative (NEGATIVE) Urine Glucose (UA) Negative (NEGATIVE) Urine Ketones Negative (NEGATIVE) Urine Occult Blood 5+ (NEGATIVE) H Urine Nitrite Negative (NEGATIVE) Urine Bilirubin Negative (NEGATIVE) Urine Urobilinogen Normal MG/DL (0.0-1.0) Urine Leukocyte Esterase Negative (NEGATIVE) Urine RBC 15-20 /HPF (0 - 2) H Urine WBC 0-2 /HPF (0 - 2) Urine Squamous Epithelial Cells Occasional /LPF Urine Bacteria Occasional /HPF (NONE) Thyroid Stimulating Hormone (TSH) 3.454 uiU/mL (0.358-3.740) Free Thyroxine 0.73 NG/DL (0.76-1.46) L Urine Opiates Screen Negative (NEGATIVE) Urine Barbiturates Screen Negative (NEGATIVE) Phencyclidine (PCP) Screen Negative (NEGATIVE) Urine Amphetamines Screen Negative (NEGATIVE) Urine Benzodiazepines Screen Negative (NEGATIVE) Urine Cocaine Screen Negative (NEGATIVE) Urine Marijuana (THC) Screen Negative (NEGATIVE) Test 05/25/17 09:45 Stool Fat Screen Pending Stool Osmolality Pending Stool Occult Blood Negative (NEGATIVE) General Appearance: well appearing, no apparent distress, alert Head: normocephalic EENT: PERRL/EOMI, normal ENT inspection Neck: supple Respiratory: normal breath sounds, no respiratory distress Cardiovascular: normal rate Gastrointestinal: normal inspection, non tender, soft, normal bowel sounds, non -distended Rectal: deferred Genitourinary: no CVA tenderness Musculoskeletal: normal inspection, back normal Neurologic: normal inspection, alert, oriented x3, responsive Psychiatric: normal inspection, judgement/insight normal, memory normal Skin: normal inspection, normal color, no rash, warm/dry, palpation normal, well hydrated Lymphatic: normal inspection, no adenopathy Current Medications Current Medications Medications (Trade) Dose Ordered Sig/Guru Route PRN Reason Start Time Stop Time Status Last Admin Dose Admin Acetaminophen (Tylenol) 650 mg Q4H PRN ORAL Mild Pain (Pain Scale 1-3) 05/24/17 16:45 06/23/17 16:44 Acetaminophen (Tylenol) 650 mg Q4H PRN ORAL fever 05/24/17 16:45 06/23/17 16:44 Acetaminophen (Tylenol) 650 mg Q4H PRN RECTAL Mild Pain (Pain Scale 1-3) 05/24/17 16:45 06/23/17 16:44 Acetaminophen (Tylenol) 650 mg Q4H PRN RECTAL fever 05/24/17 16:45 06/23/17 16:44 Al Hydroxide/Mg Hydroxide (Mylanta II) 30 ml Q6H PRN ORAL dyspepsia 05/24/17 16:45 06/23/17 16:44 Dextrose (Dextrose 50%) STAT PRN IV Hypoglycemia 05/24/17 16:45 06/23/17 16:44 Dextrose/ Electrolytes 1,000 ml @ 100 mls/hr Q10H IV 05/24/17 19:00 06/23/17 18:59 05/25/17 04:41 Diphenhydramine HCl (Benadryl) 25 mg Q6H PRN ORAL Itching/Pruritis 05/24/17 16:45 06/23/17 16:44 Morphine Sulfate (Morphine Sulfate) 2 mg Q4H PRN IVP moderate to severe pain 05/24/17 16:45 05/31/17 16:44 Ondansetron HCl (Zofran) 4 mg Q6H PRN IVP Nausea & Vomiting 05/24/17 16:45 06/23/17 16:44 Pantoprazole (Protonix) 40 mg DAILY IV 05/24/17 18:00 06/23/17 17:59 05/25/17 08:06 Prochlorperazine (Compazine) 10 mg Q6H PRN IVP Nausea & Vomiting 05/24/17 16:45 06/23/17 16:44 Zolpidem Tartrate (Ambien) 5 mg HSPRN PRN ORAL Insomnia 05/24/17 16:45 05/31/17 16:44 05/24/17 20:02 GI: Plan Problems: (1) Dehydration (2) Severe malnutrition (3) Diarrhea (4) Chronic diarrhea (5) Hypokalemia Plan utox negative OB stool negative adv to lactose free soft diet today for lunch zofran prn fu stool studies, cdiff, O&P, stool fat, stool osmolality Imodium prn fu labs, entamoeba histolytic, tTG r/o celiac Discussed with Dr. Marcelino. Thank you for this patient referral, we will follow. Shruti Tineo N.P. May 25, 2017 13:18
--- NOTE | 2017-05-25 14:52 | History and Physical ---
History of Present Illness General Date patient seen: May 25, 2017 Time patient seen: 14:52 Reason for Hospitalization: Generalized Weakness, Nausea/vomiting, Diarrhea Present Illness HPI 56y/o female with pmh of GERD who presents with generalized weakness, nausea/ vomiting and diarrhea. Pt states she has been having progressively worsening symptoms since 2 months ago. Describes diarrhea as watery and non-bloody. Has been on course of antibiotics for it w/o resolution. C/o intermittent lower abd cramping sensation. Denies association with certain types of food. Has good appetite but feels that every time she eats has diarrhea. Also c/o nausea and nb /nb emesis. Denies f/c, chest pain, SOB, dysuria. Denied any recent travels, but stated his dad had similar symptoms and diagnosed with amoebas. Last EGD/ colonoscopy was 3 years ago with unremarkable results per pt. Of note pt had CT a/p done 04/23 which showed undistention vs wall thickening of stomach, moderate colonic stool, no bowel obstruction. Allergies: Coded Allergies: No Known Allergies (Unverified , 04/22/17) Medication History Scheduled Ciprofloxacin Hcl* (Ciprofloxacin Hcl*), 500 MG ORAL Q12H Loperamide HCl (Loperamide), 2 MG ORAL Q12HR Omeprazole Magnesium (Prilosec Otc), 20 MG ORAL DAILY Scheduled PRN Ondansetron Odt* (Zofran Odt*), 4 MG ORAL Q6H PRN for Nausea & Vomiting Patient History History Provided By: Patient, Medical Record Healthcare decision maker N Resuscitation status Full Code Advanced Directive on File Past Medical/Surgical History Past Medical/Surgical History: (1) GERD (gastroesophageal reflux disease) Family History Family History: Patient reports no known family medical history. Social History Social History: (1) No significant social history Review of Systems Constitutional: Reports: malaise, weakness Eye: Reports: no symptoms ENT: Reports: no symptoms Respiratory: Reports: no symptoms Cardiovascular: Reports: no symptoms Gastrointestinal: Reports: abdominal pain, diarrhea, nausea, vomiting Genitourinary: Reports: no symptoms Musculoskeletal: Reports: no symptoms Skin: Reports: no symptoms Psychiatric: Reports: no symptoms Neurological: Reports: no symptoms Endocrine: Reports: no symptoms Hematologic/Lymphatic: Reports: no symptoms Physical Exam Physical Exam Narrative General: alert, cooperative, no distress, appears stated age Head: normocephalic, without obvious abnormality, atraumatic Eyes: conjunctivae/corneas clear. PERRL, EOM's intact Throat: lips, mucosa, and tongue normal. MMM Neck: supple, symmetrical, trachea midline, and no JVD Lungs: clear to auscultation bilaterally Heart: regular rate and rhythm, S1, S2 normal, no murmur, click, rub or gallop Abdomen: soft, mild TTP of lower abd, non-distended, bowel sounds normal; no masses or organomegaly Extremities: extremities normal, atraumatic, no cyanosis or edema Pulses: 2+ and symmetric Skin: skin color, texture, turgor normal; no rashes or lesions Neurologic: grossly normal, no focal deficits Last 24 Hour Vital Signs Date Time Temp Pulse Resp B/P (MAP) Pulse Ox O2 Delivery O2 Flow Rate FiO2 05/25/17 11:53 98.0 64 19 132/86 95 Room Air 98.0 05/25/17 08:00 97.6 68 19 116/72 100 Room Air 97.6 05/25/17 04:00 98.6 66 19 115/74 100 Room Air 98.6 05/24/17 20:10 98.0 72 20 95/55 99 Room Air 98.0 05/24/17 18:10 100.5 71 20 111/71 99 Room Air 100.5 05/24/17 17:45 98.0 79 16 110/57 100 Room Air 98.0 05/24/17 17:32 98.0 79 16 110/57 100 Room Air 98.0 05/24/17 16:33 98.0 75 18 114/63 99 Room Air 98.0 05/24/17 14:56 98.0 75 18 107/59 99 Room Air 98.0 Intake and Output 05/24/17 05/25/17 19:00 07:00 Intake Total 1560 ml Balance 1560 ml Intake Oral 360 ml IV Total 1200 ml # Voids 4 3 Laboratory Tests Test 05/25/17 07:10 05/25/17 09:00 05/25/17 09:45 White Blood Count 6.0 K/UL (4.8-10.8) Red Blood Count 3.52 M/UL (4.20-5.40) L Hemoglobin 11.8 G/DL (12.0-16.0) L Hematocrit 34.1 % (37.0-47.0) L Mean Corpuscular Volume 97 FL (80-99) Mean Corpuscular Hemoglobin 33.6 PG (27.0-31.0) H Mean Corpuscular Hemoglobin Concent 34.7 G/DL (32.0-36.0) Red Cell Distribution Width 11.0 % (11.6-14.8) L Platelet Count 206 K/UL (150-450) Mean Platelet Volume 6.6 FL (6.5-10.1) Neutrophils (%) (Auto) 61.0 % (45.0-75.0) Lymphocytes (%) (Auto) 28.9 % (20.0-45.0) Monocytes (%) (Auto) 6.4 % (1.0-10.0) Eosinophils (%) (Auto) 2.9 % (0.0-3.0) Basophils (%) (Auto) 0.7 % (0.0-2.0) Sodium Level 141 MMOL/L (136-145) Potassium Level 3.9 MMOL/L (3.5-5.1) Chloride Level 108 MMOL/L (98-107) H Carbon Dioxide Level 28 MMOL/L (21-32) Anion Gap 5 mmol/L (5-15) Blood Urea Nitrogen 7 mg/dL (7-18) Creatinine 0.5 MG/DL (0.55-1.30) L Estimat Glomerular Filtration Rate > 60 mL/min (>60) Glucose Level 114 MG/DL (74-106) H Calcium Level 9.0 MG/DL (8.5-10.1) Total Bilirubin 0.5 MG/DL (0.2-1.0) Aspartate Amino Transf (AST/SGOT) 28 U/L (15-37) Alanine Aminotransferase (ALT/SGPT) 46 U/L (12-78) Alkaline Phosphatase 70 U/L (46-116) Total Protein 5.9 G/DL (6.4-8.2) L Albumin 3.1 G/DL (3.4-5.0) L Globulin 2.8 g/dL Albumin/Globulin Ratio 1.1 (1.0-2.7) Thyroid Stimulating Hormone (TSH) 3.454 uiU/mL (0.358-3.740) Free Thyroxine 0.73 NG/DL (0.76-1.46) L Urine Opiates Screen Negative (NEGATIVE) Urine Barbiturates Screen Negative (NEGATIVE) Phencyclidine (PCP) Screen Negative (NEGATIVE) Urine Amphetamines Screen Negative (NEGATIVE) Urine Benzodiazepines Screen Negative (NEGATIVE) Urine Cocaine Screen Negative (NEGATIVE) Urine Marijuana (THC) Screen Negative (NEGATIVE) Stool Fat Screen Pending Stool Osmolality Pending Stool Occult Blood Negative (NEGATIVE) Height (Feet): 5 Height (Inches): 4.00 Weight (Pounds): 115 Medications Current Medications Medications (Trade) Dose Ordered Sig/Guru Route PRN Reason Start Time Stop Time Status Last Admin Dose Admin Acetaminophen (Tylenol) 650 mg Q4H PRN ORAL Mild Pain (Pain Scale 1-3) 05/24/17 16:45 06/23/17 16:44 Acetaminophen (Tylenol) 650 mg Q4H PRN ORAL fever 05/24/17 16:45 06/23/17 16:44 Acetaminophen (Tylenol) 650 mg Q4H PRN RECTAL Mild Pain (Pain Scale 1-3) 05/24/17 16:45 06/23/17 16:44 Acetaminophen (Tylenol) 650 mg Q4H PRN RECTAL fever 05/24/17 16:45 06/23/17 16:44 Al Hydroxide/Mg Hydroxide (Mylanta II) 30 ml Q6H PRN ORAL dyspepsia 05/24/17 16:45 06/23/17 16:44 Dextrose (Dextrose 50%) STAT PRN IV Hypoglycemia 05/24/17 16:45 06/23/17 16:44 Dextrose/ Electrolytes 1,000 ml @ 100 mls/hr Q10H IV 05/24/17 19:00 06/23/17 18:59 05/25/17 04:41 Diphenhydramine HCl (Benadryl) 25 mg Q6H PRN ORAL Itching/Pruritis 05/24/17 16:45 06/23/17 16:44 Morphine Sulfate (Morphine Sulfate) 2 mg Q4H PRN IVP moderate to severe pain 05/24/17 16:45 05/31/17 16:44 Ondansetron HCl (Zofran) 4 mg Q6H PRN IVP Nausea & Vomiting 05/24/17 16:45 06/23/17 16:44 Pantoprazole (Protonix) 40 mg DAILY IV 05/24/17 18:00 06/23/17 17:59 05/25/17 08:06 Prochlorperazine (Compazine) 10 mg Q6H PRN IVP Nausea & Vomiting 05/24/17 16:45 06/23/17 16:44 Zolpidem Tartrate (Ambien) 5 mg HSPRN PRN ORAL Insomnia 05/24/17 16:45 05/31/17 16:44 05/24/17 20:02 Assessment/Plan Problem List: (1) Chronic diarrhea ICD Codes: K52.9 - Noninfective gastroenteritis and colitis, unspecified SNOMED: 693299365 (2) Persistent vomiting ICD Codes: R11.10 - Vomiting, unspecified SNOMED: 730664081 (3) Hypokalemia ICD Codes: E87.6 - Hypokalemia SNOMED: 49060800 (4) Dehydration ICD Codes: E86.0 - Dehydration SNOMED: 58800296 (5) Severe malnutrition ICD Codes: E43 - Unspecified severe protein-calorie malnutrition SNOMED: 41168800 (6) GERD (gastroesophageal reflux disease) ICD Codes: K21.9 - Gastro-esophageal reflux disease without esophagitis SNOMED: 989107946 Status: stable Assessment/Plan Admit inpt GI consulted Check stool studies for C. diff, Enteric pathogens, O&P Check stool occult blood, stool osm, stool fat mIVFs Hold off on anbitioics at this time as pt clinically stable CLD for now. Advance diet per GI Check TSH, free T4 Pain control, nausea control Supportive care DVT ppx w/ SCDs, early ambulation FULL CODE D/w pt, RN, SW/CM, GI regarding mgmt and dispo Doron Oshea M.D. May 25, 2017 14:52
[2017-05-25] MEDS: Mylanta II UD 30ml ORAL PRN (17:52)
[2017-05-25 18:00] VITALS: BP 115/74
[2017-05-25 20:00] VITALS: BP 107/73
[2017-05-25] MEDS: Zolpidem 5mg tab ORAL PRN (20:04)
[2017-05-26] MEDS: D5 1/2NS w/KCl 20mEq 1,000 ML IV SCH ×2 (01:56→10:58)
[2017-05-26 05:00] VITALS: BP 101/74
[2017-05-26] MEDS: Mylanta II UD 30ml ORAL PRN (06:01)
[2017-05-26 06:43] LABS: BASOPHILS % (AUTO) 0.8 % (0.0-2.0); EOSINOPHILS % (AUTO) 2.8 % (0.0-3.0); HEMATOCRIT 40.5 % (37.0-47.0); LYMPHOCYTES % (AUTO) 29.7 % (20.0-45.0); MEAN CORPUSCULAR VOLUME 98 FL (80-99); MONOCYTES % (AUTO) 4.5 % (1.0-10.0); NEUTROPHILS % (AUTO) 62.2 % (45.0-75.0); PLATELET COUNT 281 K/UL (150-450); RED BLOOD COUNT 4.11 M/UL (4.20-5.40); WHITE BLOOD COUNT 5.9 K/UL (4.8-10.8)
[2017-05-26 06:54] LABS: ANION GAP 5 mmol/L (5-15); BLOOD UREA NITROGEN 7 mg/dL (7-18); CALCIUM 9.5 MG/DL (8.5-10.1); CARBON DIOXIDE 32 MMOL/L (21-32); CHLORIDE 103 MMOL/L (98-107); CREATININE 0.6 MG/DL (0.55-1.30); POTASSIUM 3.6 MMOL/L (3.5-5.1); SODIUM 140 MMOL/L (136-145)
[2017-05-26 08:00] VITALS: BP 108/61
[2017-05-26] MEDS: Pantoprazole Inj IV SCH (08:30)
[2017-05-26 12:00] VITALS: BP 107/60
[2017-05-26] MEDS ORDERED: ZOFRAN ODT4 MG ORAL (13:56)
[2017-05-26] MEDS ORDERED: AMBIEN5 MG ORAL (14:55)
[2017-05-26 16:00] VITALS: BP 121/77
[2017-05-26] MEDS ORDERED: Loperamide 2mg cap ORAL PRN (16:00)
--- NOTE | 2017-05-26 16:00 | GI Progress Note ---
Assessment/Plan Problems: (1) GERD (gastroesophageal reflux disease) ICD Codes: K21.9 - Gastro-esophageal reflux disease without esophagitis SNOMED: 323018959 (2) Dehydration ICD Codes: E86.0 - Dehydration SNOMED: 31185279 (3) Diarrhea ICD Codes: R19.7 - Diarrhea, unspecified SNOMED: 06447911 Qualifiers: Qualified Codes: R19.7 - Diarrhea, unspecified (4) Chronic diarrhea ICD Codes: K52.9 - Noninfective gastroenteritis and colitis, unspecified SNOMED: 428398764 (5) Persistent vomiting ICD Codes: R11.10 - Vomiting, unspecified SNOMED: 015973942 Status: stable Status Narrative Discussed with Dr. Marcelino. Assessment/Plan utox negative OB stool negative adv to lactose free soft diet today for lunch zofran prn fu stool studies, cdiff, O&P, stool fat, stool osmolality Imodium prn fu labs, entamoeba histolytic, tTG r/o celiac patient needs follow up with PCP to review lab results Subjective Subjective abdominal pain better nausea diarrhea Objective Last 24 Hour Vital Signs Date Time Temp Pulse Resp B/P (MAP) Pulse Ox O2 Delivery O2 Flow Rate FiO2 05/26/17 12:00 97.9 70 19 107/60 99 97.9 05/26/17 08:47 98.1 05/26/17 08:00 98.1 72 18 108/61 98 98.1 05/26/17 07:48 98.0 05/26/17 05:00 98.0 63 18 101/74 100 Room Air 98.0 05/25/17 20:00 97.7 70 18 107/73 98 Room Air 97.7 05/25/17 18:00 98.3 74 18 115/74 98 Room Air 98.3 Intake and Output 05/25/17 05/26/17 19:00 07:00 Intake Total 1050 ml 1300 ml Balance 1050 ml 1300 ml Intake Oral 950 ml 300 ml IV Total 100 ml 1000 ml # Voids 3 3 # Bowel Movements 1 1 Laboratory Tests Test 05/26/17 06:20 White Blood Count 5.9 K/UL (4.8-10.8) Red Blood Count 4.11 M/UL (4.20-5.40) L Hemoglobin 14.0 G/DL (12.0-16.0) Hematocrit 40.5 % (37.0-47.0) Mean Corpuscular Volume 98 FL (80-99) Mean Corpuscular Hemoglobin 34.1 PG (27.0-31.0) H Mean Corpuscular Hemoglobin Concent 34.7 G/DL (32.0-36.0) Red Cell Distribution Width 11.0 % (11.6-14.8) L Platelet Count 281 K/UL (150-450) Mean Platelet Volume 6.9 FL (6.5-10.1) Neutrophils (%) (Auto) 62.2 % (45.0-75.0) Lymphocytes (%) (Auto) 29.7 % (20.0-45.0) Monocytes (%) (Auto) 4.5 % (1.0-10.0) Eosinophils (%) (Auto) 2.8 % (0.0-3.0) Basophils (%) (Auto) 0.8 % (0.0-2.0) Sodium Level 140 MMOL/L (136-145) Potassium Level 3.6 MMOL/L (3.5-5.1) Chloride Level 103 MMOL/L (98-107) Carbon Dioxide Level 32 MMOL/L (21-32) Anion Gap 5 mmol/L (5-15) Blood Urea Nitrogen 7 mg/dL (7-18) Creatinine 0.6 MG/DL (0.55-1.30) Estimat Glomerular Filtration Rate > 60 mL/min (>60) Glucose Level 101 MG/DL (74-106) Calcium Level 9.5 MG/DL (8.5-10.1) Tissue Transglutaminase IgA Ab Pending Entamoeba histolytica Antibody Pending Height (Feet): 5 Height (Inches): 4.00 Weight (Pounds): 115 General Appearance: WD/WN, no apparent distress, alert Cardiovascular: normal rate Respiratory/Chest: normal breath sounds, no respiratory distress Abdominal Exam: normal bowel sounds, non tender, soft Extremities: normal range of motion, non-tender Shruti Tomas N.PEle May 26, 2017 16:00
--- NOTE | 2017-05-27 14:15 | Consultation ---
DATE OF CONSULTATION: 05/26/2017 NOTE: POOR AUDIO HEMATOLOGY/ONCOLOGY CONSULTATION CONSULTING PHYSICIAN: Andrew Hayden M.D. REQUESTING PHYSICIAN: Negrita Alan M.D. REASON FOR CONSULTATION: Evaluation of failure to thrive as well as diarrhea. HISTORY OF PRESENT ILLNESS: The patient is a pleasant 56-year-old female with past medical history significant for GERD, at this time presents to the hospital with nausea, vomiting, and diarrhea for the past several months. She has been feeling worse. Described diarrhea as watery, nonbloody, has been on complaining of intermittent abdominal cramping, has had a good appetite, but feels every time she eats, she has diarrhea, also complaining of nausea, nonbloody and nonbilious emesis. Denies any fevers, chills, or shortness of breath. Last EGD years ago. Also had a CAT scan a month ago stomach, moderate colonic stool, no bowel obstruction. PAST MEDICAL HISTORY: As noted above. PAST SURGICAL HISTORY: None reported. ALLERGIES: No known drug allergies. MEDICATIONS: Ciprofloxacin . REVIEW OF SYSTEMS: CONSTITUTIONAL: No fevers, chills, or night sweats. SKIN: No rashes, bumps, or itching. HEENT: No headache, hearing or vision changes. BREASTS: No lumps, pain, or discharge. PULMONARY: No cough, sputum, or shortness of breath. GASTROINTESTINAL: nausea and vomiting. GENITOURINARY: No dysuria, frequency, or urgency. MUSCULOSKELETAL: No joint swelling, muscle pain, or trauma. PHYSICAL EXAMINATION: VITAL SIGNS: Reviewed. GENERAL: No distress. PULMONARY: Decreased breath sounds. CARDIOVASCULAR: Regular rate. No S3 or S4. ABDOMEN: Soft, nontender, and nondistended. EXTREMITIES: No cyanosis, swelling, or edema noted. LABORATORY AND DIAGNOSTIC DATA: WBC , hemoglobin 14, and platelet count 281,000. Serology, BUN of 10 and creatinine 0.5. ASSESSMENT AND RECOMMENDATIONS: 1. Failure to thrive, has been seen by GI Service. The patient with decreased p.o. intake as well as significant diarrhea, followup stool is pending, . Follow up on labs. Rule out celiac disease as well. No evidence of malignancy at this time. The patient currently started on Imodium. The patient discharged home and will follow up with primary care in the outpatient setting. 2. Diarrhea, likely related to underlying infection versus other causes. GI service has been consulted. . Continue to closely monitor. 3. Dehydration, administer IV fluids as needed. 4. Severe malnutrition, protein caloric. Continue to monitor for improvement. The patient is being seen by GI team as well as the primary team. 5. Generalized weakness. Continue on GI evaluation. The patient has been started on Imodium and diarrhea improved. I appreciate the consultation. Andrew Hayden M.D. DR: Be JOB#: [id number] CC:
--- NOTE | 2017-05-28 13:47 | Discharge Summary ---
Discharge Summary Hospital Course Date of Admission May 24, 2017 at 16:22 Date of Discharge May 26, 2017 at 17:45 Admitting Diagnosis hypothyroidism, hypokalemia CARLEE Zuniga is a 56 year old female who was admitted on May 24, 2017 at 16:22 for Hypothyroidism, Hypokalemia Hospital Course [id number] Discharge Discharge Disposition Patient was discharged to Home (01) Discharge Diagnoses: Dayna Dobbins NP May 28, 2017 13:47
--- NOTE | 2017-05-28 21:36 | Cardiology Report ---
APPROVED REPORT EKG Measurement Heart [id number] [id number] Normal sinus rhythm Nonspecific ST abnormality Abnormal ECG
--- NOTE | 2017-05-29 00:45 | Discharge Summary 2 SIG ---
DATE OF ADMISSION: 05/24/2017 DATE OF DISCHARGE: 05/26/2017 CONSULTANTS: 1. Andrew Hayden M.D. 2. Will Marcelino M.D. BRIEF HOSPITAL COURSE: The patient is a 56-year-old female with medical history of GERD, who presented to ED complaining of generalized weakness with nausea, vomiting, and diarrhea. Symptoms have been progressively worsening for the past two months. Described diarrhea as watery and nonbloody. She had been on a course of antibiotics, however, symptoms persisted without resolution. She complained of intermittent lower abdominal cramping sensation. Denied association with certain types of food. She had good appetite, however, had continuous diarrhea every time she eats. She also complained of nausea and nonbloody nonbilious emesis. Last esophagogastroduodenoscopy/colonoscopy was three years ago with unremarkable results. On evaluation at ED, there was no leukocytosis. Hemoglobin and hematocrit was suggestive of volume depletion. Potassium was 3.2. ALT was elevated. She was started on IV hydration. She was unable to take potassium supplements orally. She was given potassium intravenous. She had an EKG that showed normal sinus rhythm. Urine drug screen was negative. She was admitted for evaluation of chronic diarrhea and persistent vomiting with evidence of dehydration and hypokalemia and malnutrition. She was given IV fluids. She was seen by GI. Stool OB was negative. She was given Imodium and symptomatic treatment. Diet was advanced to lactose-free soft diet. Stool culture was negative for Salmonella, Shigella, or Campylobacter and negative for ova and parasites. She had failure to thrive and had severe protein caloric malnutrition. P.o. was encouraged. She was eventually tolerating diet well. She was discharged home. FINAL DIAGNOSES: 1. Diarrhea with noninfective acute gastroenteritis and colitis. 2. Persistent vomiting. 3. Hypokalemia. 4. Dehydration. 5. Severe protein-calorie malnutrition. 6. Gastroesophageal reflux disease. DISPOSITION: The patient was discharged home. DISCHARGE MEDICATIONS: Refer to medication list. DISCHARGE INSTRUCTIONS: Follow up with PCP in a week. Kanishka Wijegunaratne, M.D. I have been assigned to dictate discharge summary on this account and I was not involved in the patient's management. Dayna Dobbins N.P. DR: DESTINY JOB#: [id number] CC: WANDY
== END 2017-05-26 17:45 | disposition home or self-care (01) | DRG 422 ==
LOC: EMR 12:50 → 3E 16:22 → EDBEDREQ 17:19
DX: E87.6 Hypokalemia (principal); E86.0 Dehydration; E43 Unspecified severe protein-calorie malnutrition; K52.9 Noninfective gastroenteritis and colitis, unspecified; E03.9 Hypothyroidism, unspecified; Z68.1 Body mass index [BMI] 19.9 or less, adult; K21.9 Gastro-esophageal reflux disease without esophagitis
CPT/HCPCS: 36415; 80048; 80053; 80307; 81003; 82270; 82705; 83516; 83690; 84439; 84443; 84484; 84999; 85025; 85610; 85730; 86753; 87045; 93005; 99285; J2405; J8499

== ENCOUNTER 2017-09-10 04:33 | Emergency (ER) | payer MEDICAID ==
[~2017-09-10] VITALS: Ht 162.6 cm; Wt 50.8 kg
[~2017-09-10 04:33] MED LIST changes: +AMBIEN5 MG ORAL
--- NOTE | 2017-09-10 05:00 | Emergency Room Report ---
History of Present Illness General Chief Complaint: Abdominal Pain Source: Patient, Medical Record Present Illness HPI Is a 56-year-old female with chronic GI issue. She presents with chief complaint of nausea vomiting and diarrhea. This is a persistent problem but worse in the last Week. She has subjective fever. Vomiting is nonbloody nonbilious. She try Imodium and she said it backed her up. Denies any other complaint. Cramping pain. Said she felt weak. Worse with exertion. Denies any chest pain. No urinary complaint. Allergies: Coded Allergies: No Known Allergies (Unverified , 09/10/17) Patient History Past Medical History: see triage record, old chart reviewed Past Surgical History: other Pertinent Family History: none Social History: Denies: smoking Last Menstrual Period: n/a Now: No Immunizations: other Reviewed Nursing Documentation: PMH: Agreed; PSxH: Agreed Nursing Documentation-PMH Hx Cardiac Problems: Yes - heart murmur Hx Gastrointestinal Problems: Yes Hx Neurological Problems: No Review of Systems Eye: Denies: eye pain, blurred vision ENT: Denies: ear pain, nose congestion, throat swelling Respiratory: Denies: cough, shortness of breath Cardiovascular: Denies: chest pain, palpitations Gastrointestinal: Reports: diarrhea, nausea, vomiting; Denies: abdominal pain Musculoskeletal: Denies: back pain, joint pain Skin: Denies: rash Neurological: Denies: headache, numbness Endocrine: Denies: increased thirst, increased urine Hematologic/Lymphatic: Denies: easy bruising All Other Systems: negative except mentioned in HPI Physical Exam Vital Signs Date Time Temp Pulse Resp B/P (MAP) Pulse Ox O2 Delivery O2 Flow Rate FiO2 09/10/17 04:38 98.8 98 16 121/85 98 Room Air 98.8 vitals normal Sp02 EP Interpretation: reviewed, normal General Appearance: well appearing, no apparent distress, alert, thin Head: normocephalic, atraumatic Eyes: bilateral eye PERRL, bilateral eye EOMI ENT: hearing grossly normal, normal pharynx Neck: full range of motion, supple, no meningismus Respiratory: chest non-tender, lungs clear, normal breath sounds Cardiovascular #1: regular rate, rhythm, no murmur Gastrointestinal: normal bowel sounds, non tender, no mass, no organomegaly, no bruit, non-distended Musculoskeletal: back normal, gait/station normal, normal range of motion Psychiatric: mood/affect normal Skin: warm/dry Medical Decision Making Diagnostic Impression: Primary Impression: Weakness generalized ER Course Patient complaining of weakness with nausea vomiting diarrhea. She has no vomiting or diarrhea here. Is tolerating by mouth. She has no evidence of dehydration or electrolyte abnormality. She may be a hypochondriac or some type of psychogenic issue. She had previous endoscopy that was unremarkable. We'll discharge home. Lab Results Impression labs normal Last Vital Signs Date Time Temp Pulse Resp B/P (MAP) Pulse Ox O2 Delivery O2 Flow Rate FiO2 09/10/17 04:38 98.8 98 16 121/85 98 Room Air 98.8 Status: unchanged Disposition: HOME, SELF-CARE Condition: Stable Additional Instructions: Follow-up with your Dr. in 7 days. Return if symptom worsen. SHAWANDA TINEO M.D. Sep 10, 2017 05:00
[2017-09-10 05:21] LABS: APPEARANCE,URINE CLEAR; BILIRUBIN, URINE NEGATIVE (NEGATIVE); COLOR,URINE PALE YELLOW; GLUCOSE, URINE (UA) NEGATIVE (NEGATIVE); KETONES,URINE NEGATIVE (NEGATIVE); LEUKOCYTE ESTERASE ,URINE NEGATIVE (NEGATIVE); NITRITE,URINE NEGATIVE (NEGATIVE); PH,URINE 5 (4.5-8.0); PROTEIN,URINE NEGATIVE (NEGATIVE); UROBILINOGEN,URINE NORMAL MG/DL (0.0-1.0)
[2017-09-10 05:43] LABS: BASOPHILS % (AUTO) 0.6 % (0.0-2.0); HEMATOCRIT 43.6 % (37.0-47.0); HEMOGLOBIN 14.8 G/DL (12.0-16.0); LYMPHOCYTES % (AUTO) 14.8 % (20.0-45.0); MEAN CORPUSCULAR VOLUME 94 FL (80-99); MONOCYTES % (AUTO) 3.1 % (1.0-10.0); NEUTROPHILS % (AUTO) 80.5 % (45.0-75.0); PLATELET COUNT 276 K/UL (150-450); RED BLOOD COUNT 4.66 M/UL (4.20-5.40); RED CELL DISTRIBUTION WIDTH 10.8 % (11.6-14.8); WHITE BLOOD COUNT 5.8 K/UL (4.8-10.8)
[2017-09-10 06:01] LABS: ANION GAP 8 mmol/L (5-15); BLOOD UREA NITROGEN 13 mg/dL (7-18); CALCIUM 9.6 MG/DL (8.5-10.1); CARBON DIOXIDE 27 MMOL/L (21-32); CHLORIDE 106 MMOL/L (98-107); CREATININE 0.6 MG/DL (0.55-1.30); POTASSIUM 3.7 MMOL/L (3.5-5.1); SODIUM 141 MMOL/L (136-145)
[2017-09-10 06:05] LABS: ALANINE AMINOTRANSFERASE 47 U/L (12-78); ALBUMIN 4.3 G/DL (3.4-5.0); ALBUMIN/GLOBULIN RATIO 1.1 (1.0-2.7); ALKALINE PHOSPHATASE 81 U/L (46-116); ASPARTATE AMINO TRANSFERASE 31 U/L (15-37); BILIRUBIN,TOTAL 0.3 MG/DL (0.2-1.0)
[2017-09-10 06:18] VITALS: BP 121/85
== END 2017-09-10 06:19 | disposition home or self-care (01) ==
LOC: EMR 04:46
DX: R53.1 Weakness (principal); R11.2 Nausea with vomiting, unspecified; R19.7 Diarrhea, unspecified
CPT/HCPCS: 36415; 80053; 81003; 83690; 85025; 96361; 96374; 99284; J2405; 96360

== ENCOUNTER 2017-10-02 04:16 | Emergency (ER) | payer MEDICAID ==
[~2017-10-02] VITALS: Ht 162.6 cm; Wt 48.1 kg
[2017-10-02 04:35] VITALS: BP 114/74
[2017-10-02 04:36] VITALS: BP 114/74
[2017-10-02] MEDS ORDERED: ZOFRAN4 MG ORAL (04:37)
--- NOTE | 2017-10-02 04:38 | Emergency Room Report ---
History of Present Illness General Chief Complaint: Headache Source: Patient Present Illness HPI Is a 56-year-old female with a history of chronic abdominal pain with nausea vomiting and diarrhea. She claims she lost a lot of weight. She looked like she is in the same way as I saw her several times before. She presents with chief complaint of headache and vomiting. She said that her thyroid is abnormal. She was still her thyroid was fine as she stop her medication. She said it's 10 time worse now. She look on Internet and said is a problem associate with her abdominal pain. No fever chills denies any other complaint. Allergies: Coded Allergies: No Known Allergies (Unverified , 09/10/17) Patient History Past Medical History: see triage record, old chart reviewed Past Surgical History: other Pertinent Family History: none Social History: Denies: smoking Now: No Immunizations: other Reviewed Nursing Documentation: PMH: Agreed; PSxH: Agreed Nursing Documentation-PMH Hx Cardiac Problems: Yes - heart murmur Hx Gastrointestinal Problems: Yes Hx Neurological Problems: No Review of Systems Constitutional: Reports: weakness Eye: Denies: eye pain, blurred vision ENT: Denies: ear pain, nose congestion, throat swelling Respiratory: Denies: cough, shortness of breath Cardiovascular: Denies: chest pain, palpitations Gastrointestinal: Reports: abdominal pain, diarrhea, nausea, vomiting Musculoskeletal: Denies: back pain, joint pain Skin: Denies: rash Neurological: Reports: headache; Denies: numbness Endocrine: Denies: increased thirst, increased urine Hematologic/Lymphatic: Denies: easy bruising All Other Systems: negative except mentioned in HPI Physical Exam Vital Signs Date Time Temp Pulse Resp B/P (MAP) Pulse Ox O2 Delivery O2 Flow Rate FiO2 10/02/17 04:17 99.2 95 18 114/74 94 Room Air 99.1 vitals unremarkable Sp02 EP Interpretation: reviewed, normal General Appearance: well appearing, no apparent distress, alert Head: normocephalic, atraumatic Eyes: bilateral eye PERRL, bilateral eye EOMI ENT: hearing grossly normal, normal pharynx Neck: full range of motion, supple, no meningismus Respiratory: chest non-tender, lungs clear, normal breath sounds Cardiovascular #1: regular rate, rhythm, no murmur Gastrointestinal: normal bowel sounds, non tender, no mass, no organomegaly, no bruit, non-distended Musculoskeletal: back normal, gait/station normal, normal range of motion Psychiatric: mood/affect normal Skin: warm/dry Medical Decision Making Diagnostic Impression: Primary Impression: Headache Qualified Codes: R51 - Headache ER Course Patient with headache and multiple somatic complaints. I suspect a strong component of hypochondriac in this patient. I see no need to get an emergent thyroid function tests here. She showed no evidence of severe hypothyroid or thyroid toxicity. This can be done as an outpatient. We'll discharge home. Last Vital Signs Date Time Temp Pulse Resp B/P (MAP) Pulse Ox O2 Delivery O2 Flow Rate FiO2 10/02/17 04:17 99.2 95 18 114/74 94 Room Air 99.1 Status: improved Disposition: HOME, SELF-CARE Condition: Stable Scripts Ondansetron (Zofran) 4 Mg Tablet 4 MG ORAL Q6H PRN for Nausea & Vomiting, #30 TAB 0 Refills Prov: SHAWANDA TINEO M.D. 10/02/17 Patient Instructions: General Headache Without Cause Additional Instructions: Follow-up with your DrEle in 2 to 3 days for recheck. Return if symptom worsen. SHAWANDA TINEO M.D. Oct 02, 2017 04:38
== END 2017-10-02 04:46 | disposition home or self-care (01) ==
LOC: EMR 04:40
DX: R51 Headache (principal); R11.10 Vomiting, unspecified; R10.9 Unspecified abdominal pain; R01.1 Cardiac murmur, unspecified
CPT/HCPCS: 99283